=== PATIENT | female | born 1985 | race Caucasian/White ===

== ENCOUNTER 2018-01-08 01:41 | Inpatient (IN) | payer BC, SELFPAY ==
[2018-01-08 02:59] LABS: Hemoglobin 13.2 g/dL (12.0-16.0); Mean Corpuscular HGB CONC 35.8 g/dL (32.0-36.0); Mean Corpuscular Hemoglobin 30.1 pg (27.0-31.0); Mean Corpuscular Volume 83.9 fl (81.0-99.0); Mean Platelet Volume 8.4 fL (7.4-10.4); Platelet Count 168 thou/uL (130-400); RBC Distribution Width 13.7 % (11.5-14.5); Red Blood Cell (RBC) Count 4.39 mill/uL (4.20-5.40); White Blood Cell (WBC) Count 13.2 thou/uL (4.8-10.8)
[2018-01-08 03:04] VITALS: BMI 33.9
[2018-01-08 03:30] LABS: Band 15 % (5-11); Lymphocytes 6 % (21-51); MDiff Complete? YES; Monocytes 2 % (0-10); Neutrophil 76 % (42-75); PLT Morphology Comment Appears Adequate; Reactive Lymphocytes 1 % (0-10)
[2018-01-08] MEDS ORDERED: Promethazine HCl 25 MG/ML VIAL IM PRN (03:36)
[2018-01-08] MEDS ORDERED: Ondansetron HCl/PF 4 MG/2 ML Vial IVP PRN ×2 (03:36→13:49)
[2018-01-08] MEDS ORDERED: Lidocaine 1% (PF) 30 ML VIAL SC PRN (03:36)
[2018-01-08] MEDS ORDERED: Carboprost 250 MCG/ML AMP IM PRN (03:36)
[2018-01-08] MEDS ORDERED: Ibuprofen 800 MG TAB PO PRN (03:36)
[2018-01-08] MEDS ORDERED: Diphenoxylate HCl/Atropine Tablet PO PRN (03:36)
[2018-01-08] MEDS ORDERED: LR / Pitocin 40 units/1000 ml 1,000 ML IV PRN (03:36)
[2018-01-08] MEDS ORDERED: LR / Pitocin 40 units/1000 ml 1,000 ML ONE ×2 (03:39→03:44)
[2018-01-08] MEDS ORDERED: Lactated Ringer's 1,000 ML IV SCH (03:45)
[2018-01-08] MEDS ORDERED: LR 500 ML/Oxytocin 10 units 500 ML IV SCH (03:45)
[2018-01-08] MEDS ORDERED: Clindamycin/D5W 900 mg/50 ml Premix Bag ONE (03:46)
[2018-01-08 03:51] LABS: Hemoglobin 12.6 g/dL (12.0-16.0); White Blood Cell (WBC) Count 13.8 thou/uL (4.8-10.8)
[2018-01-08] MEDS: Acetaminophen 1,000 MG in Premix Bag 1 BAG IVPB SCH ×2 (03:53→11:32)
[2018-01-08] MEDS: Clindamycin/D5W 900 MG in Premix Bag 1 BAG IVPB SCH ×3 (03:54→21:48)
[2018-01-08] MEDS: Lactated Ringer's 1,000 ML IV SCH ×2 (03:55→13:16)
[2018-01-08 03:57] LABS: Mean Corpuscular HGB CONC 34.8 g/dL (32.0-36.0); Mean Corpuscular Hemoglobin 29.2 pg (27.0-31.0); Mean Corpuscular Volume 84.1 fl (81.0-99.0); Mean Platelet Volume 8.7 fL (7.4-10.4); Platelet Count 153 thou/uL (130-400); RBC Distribution Width 13.8 % (11.5-14.5); Red Blood Cell (RBC) Count 4.32 mill/uL (4.20-5.40)
[2018-01-08 04:11] LABS: ALT (SGPT) 15 U/L (8-55); AST (SGOT) 21 U/L (5-34); Albumin 3.4 g/dL (3.5-5.0); Alkaline Phosphatase 129 U/L (40-150); Anion Gap 15 mmol/L (10-20); BUN (Urea Nitrogen) 15 mg/dL (7.0-18.7); Bilirubin, Total 0.6 mg/dL (0.2-1.2); CRP (Inflammatory) 0.69 mg/dL (= or < 0.5); Calc. Creatinine Clearance 191 mL/min (70-130); Carbon Dioxide 17 mmol/L (22-29); Chloride 107 mmol/L (98-107); Estimated GFR-MDRD Greater than 90; Globulin 3.1 g/dL (2.4-3.5); Glucose 87 mg/dL (70-105); Potassium 3.5 mmol/L (3.5-5.1); Protein, Total 6.5 g/dL (6.0-8.3); Sodium 135 mmol/L (136-145)
[2018-01-08 04:26] LABS: HBSAg Index 0.23 S/CO (0-0.99); HIV (1/2) Antibody/Antigen Non-Reactive (NonReactive); HIV 1/2 INDEX 0.13 S/CO (<1.00); Hep B Surf Ag Non-Reactive S/CO (NonReactive)
[2018-01-08] MEDS: Ampicillin 2 GM in Sodium Chloride 0.9% 100 ML IVPB SCH ×4 (04:36→19:33)
--- NOTE | 2018-01-08 04:40 | HP ---
DATE OF ADMISSION: 01/08/2018 ADMITTING DIAGNOSES: Chorioamnionitis with maternal sepsis at 40 and 6/7 weeks gestation. HISTORY OF PRESENT ILLNESS: Ms. Valencia is a 32-year-old 4, para 2, AB 1 with an EVENS of 04/2018 placing her at 40 weeks and 6 days who sees Gris Freeman, a clay pigeon loader for her antepartum car e. The patient reports onset of subjective fever and chills at 2300 on 01/07/2018. She presented to the emergency room at [place] and was then brought to the Labor and Delivery Unit. OB AND COLD PRESS LOADER HISTORY: x2, last one was in [address] Tristan Lizarraga after a prolonged labor exper ience at a birthing center with clay pigeon loader at 43 weeks. The patient delivered a 9-1/2 pound with a first degree midline laceration and was noted to have mild chorioamnionitis and meconium at th at delivery. Other delivery was uncomplicated. The patient has 1 SAB. OB LABS: Not available. PAST MEDICAL HISTORY: None. PAST SURGICAL HISTORY: Appendectomy. ALLERGIES: SULFA and ADHESIVE TAPE. MEDICATIONS: vitamins. SOCIAL HISTORY: Denies tobacco, alcohol, or drug abuse. FAMILY HISTORY/REVIEW OF SYSTEMS: Noncontributory. PHYSICAL EXAMINATION: GENERAL: White female in no acute distress, complaining of mild mid abdominal tenderness. VITAL SIGNS: Temperature 102.8, pulse 105, respirations 20, blood pressure 110/72. HEENT: Within normal limits. HEART: Tachycardia. LUNGS: Clear to auscultation bilaterally. ABDOMEN: Soft. She has mild discomfort to the uterus on palpation. She has indentable contractions q. 3-4 minutes. FHTs are 200-210 on presentation. PELVIC: Vulva without lesions. Vagina without discharge. Cervix 150, -2, cephalic, bag of water in tact. AROM performed with scant clear fluid. IUPC placed. EXTREMITIES: Without clubbing, cyanosis or edema. LABORATORY STUDIES: The patient's white count is approximately 13.5 with a slight left shift. Other labs pending. IMPRESSION: The patient likely meets maternal sepsis criteria with lactic acid and other labs pendin g. Likely etiology is chorioamnionitis. The patient is known to be group B Strep positive per calixto kyle idwife. PLAN: Current heart rate tracing is category 2 with tachycardia and recurrence, but nons equential or repetitive late decelerations noted that do have intra deceleration variability with a f etal pulse in 200s to 110s. We will administer ampicillin, gentamicin, and clindamycin and proceed w ith intrauterine resuscitation of the fetus with Ofirmev, IV fluids, and antibiotics. We will try to get the pulse down below 180s and reassess heart rate tracing at that time. If fetus be comes more tolerant of contractions with improvement in the heart rate tracing would administer Pitocin and attempt an induction of labor, otherwise will proceed with primary section.
[2018-01-08 04:41] LABS: Syphilis Antibody Nonreactive (Nonreactive); Syphilis Antibody Index 0.05 S/CO (<1.00 Non-Reactive)
[2018-01-08 05:37] LABS: Bilirubin Negative (Negative); Blood, Urine Negative (Negative); Clarity CLEAR (Clear); Glucose, Urine (Dipstick) Negative (Negative); Leukocyte Negative (Negative); Nitrite Negative (Negative); Protein, Urine (Dipstick) Negative (Neg-Trace); Specific Gravity, Urine 1.018 (1.002-1.036); Urobilinogen 0.2 mg/dL (0.2-1.0)
[2018-01-08] MEDS: Gentamicin 80 MG/100 ML BAG IVPB SCH ×3 (05:37→22:45)
--- NOTE | 2018-01-08 07:25 | PRG ---
DATE OF SERVICE: 01/08/2018 TIME OF SERVICE: 0705 The patient is resting comfortably. She is having mild to moderate contractions q. 5-6 minutes. Maternal temperature is down to 100.2. Maternal pulse 100, respirations 18, blood pressure is 105/70 . heart rate tracing is category 2, heart rate has declined to 150s to 160s. There is i mproved short and long-term variability over presentation and heart rate decelerations are only occasionally noted. These are early in nature to variable. The cervix has not been rechecked. Aspiration on IUPC reveals moderate to thick meconium. Further history taken from the patient reveals that the patient has had what she calls "loose stools" for the past week without fever. She denies that these are bloody. The patient drinks unpasteurize d milk from a local source and consumes yard eggs from her home. IMPRESSION: Chorioamnionitis, atypical. Laboratory evaluation does not reveal any other source. Gómez spect listeriosis should be high on differential diagnosis for microbiological source of chorioamnion itis. PLAN: I have discussed with neonatology and the patient my suspicions. An antibiotic choice is appr opriate if listeriosis is the etiology. Will check the patient out to the OB Hospitalist at 0800 and anticipate sometime around or after then initiating Pitocin. If infant tolerates contractions at a greater intensity and frequency we will proceed with induction of labor and vaginal delivery. If fet us intolerant will proceed with a delivery. We will culture placenta maternal side po st delivery.
[2018-01-08] MEDS ORDERED: Bupivacaine 0.5% 20 ML, Fentanyl 400 MCG in Sodium Chloride 0.9% 72 ML EPIDURAL SCH (13:00)
[2018-01-08] MEDS ORDERED: DISCONTINUE ALL PREVIOUS NARCOTICS FS SCH (13:00)
[2018-01-08] MEDS: LR / Pitocin 40 units/1000 ml 1,000 ML IV SCH ×2 (13:35→19:33)
[2018-01-08 13:40] LABS: Actual Bicarbonate (HCO3a) 17.4 mEq/L (22-26)
[2018-01-08 13:41] LABS: Analyzer IN Cardio OR; Base Excess (BEa) -7.1 mEq/L (0 (+/-) 2.5)
[2018-01-08] MEDS ORDERED: Methylergonovine 0.2 MG/ML VIAL IM PRN (13:49)
[2018-01-08] MEDS ORDERED: diphenhydrAMINE 25 MG CAP PO PRN (13:49)
[2018-01-08] MEDS ORDERED: Preparation H Ointment 28 GM TUBE PR PRN (13:49)
[2018-01-08] MEDS ORDERED: Milk Of Magnesia 30 ML UDCUP PO PRN (13:49)
[2018-01-08] MEDS ORDERED: Benzocaine/Menthol 20-0.5% 60 ML CAN TOP PRN (13:49)
[2018-01-08] MEDS ORDERED: Bisacodyl 10 MG SUPP PR PRN (13:49)
[2018-01-08] MEDS ORDERED: Adacel (T-DAP) 0.5 ML VIAL IM ONE (13:49)
[2018-01-08] MEDS ORDERED: Misoprostol 200 MCG TAB VAG PRN (13:49)
[2018-01-08] MEDS ORDERED: Varicella virus, LIVE 0.5 ML VIAL SC ONE (13:49)
[2018-01-08] MEDS ORDERED: Lanolin Ointment 7 GM TUBE TOP PRN (13:49)
[2018-01-08] MEDS ORDERED: HYDROcodone/Acetaminophen 5/325 mg Tablet PO PRN ×2 (13:49)
[2018-01-08] MEDS ORDERED: Measles/Mumps/Rubella 10 MCG/0.5 ML VIAL SC ONE (13:49)
--- NOTE | 2018-01-08 13:55 | PDOC.OPDEL ---
OB Operative/Delivery Note Delivery Dr/Surgeon: Sameera Greene MD Pre-Delivery Diagnosis: medically indicated induction Procedure/Post Delivery Dx: spontaneous vaginal delivery Weeks gestation: 40 Anesthesia: none - Findings A Sex: male ([place]) Weight: 8 lb 12 oz - 1 min: 8 - 5 min: 9 - Additional Findings/Plan Placenta delivered: spontaneous Repaired Obstetrical Laceration: 1st degree (and periurethral) Estimated blood loss: 300 Compilations/Other Findings: Vigorous male with nuchal cord x 3. NICU present for delivery. Placental cultures, cord blood gas collected. Post delivery plan: routine recovery
[2018-01-08] MEDS: Ferrous Sulfate 325 MG TAB PO SCH (18:02)
[2018-01-08] MEDS: Ibuprofen 800 MG TAB PO SCH ×2 (18:04→23:01)
[2018-01-09] MEDS: Ampicillin 2 GM in Sodium Chloride 0.9% 100 ML IVPB SCH ×5 (01:51→20:51)
[2018-01-09] MEDS: Docusate Calcium (SURFAK) 240 MG CAP PO SCH ×3 (02:05→22:20)
[2018-01-09] MEDS: Clindamycin/D5W 900 MG in Premix Bag 1 BAG IVPB SCH ×3 (05:15→22:21)
[2018-01-09 06:21] LABS: Band 26 % (5-11); Hemoglobin 11.5 g/dL (12.0-16.0); Lymphocytes 8 % (21-51); MDiff Complete? YES; Mean Corpuscular HGB CONC 34.3 g/dL (32.0-36.0); Mean Corpuscular Hemoglobin 29.6 pg (27.0-31.0); Mean Corpuscular Volume 86.3 fl (81.0-99.0); Mean Platelet Volume 8.8 fL (7.4-10.4); Monocytes 6 % (0-10); Neutrophil 60 % (42-75); PLT Morphology Comment Appears Adequate; Platelet Count 162 thou/uL (130-400); RBC Distribution Width 14.3 % (11.5-14.5); Red Blood Cell (RBC) Count 3.88 mill/uL (4.20-5.40)
[2018-01-09] MEDS: Gentamicin 80 MG/100 ML BAG IVPB SCH ×3 (06:28→23:31)
[2018-01-09] MEDS: Ibuprofen 800 MG TAB PO SCH ×3 (06:28→22:21)
--- NOTE | 2018-01-09 07:41 | PDOC.PP ---
Post Progress Note Post Day #: 1 Subjective: Doing well, no complaints this am. Denies subjective fever, chills. PO intake tolerated: yes Ambulation: yes Vital Signs (12 hours) Temp Pulse Resp BP Pulse Ox 01/09/18 05:12 98.1 F 83 16 97/55 L 01/09/18 01:45 98.0 F 80 16 113/59 L 01/08/18 19:40 98.4 F 83 16 110/56 L 98 - Physical Examination General: NAD Respiratory: non-labored breathing Abdominal: lochia (normal), no distention, appropriately TTP Fundus firm & at: U-4 Skin: CS incision dry & intact, no rash Neurological: no gross focal deficits Psychiatric: A&Ox3, normal affect Result Diagrams: 01/09/18 05:19 01/08/18 03:41 Additional Labs: Post Labs Blood Type A POSITIVE 01/08/18 02:21 Hep Bs Antigen Non-Reactive S/CO (NonReactive) 01/08/18 03:40 (1) Unspecified maternal pyrexia, antepartum Code(s): O75.2 - PYREXIA DURING LABOR, NOT ELSEWHERE CLASSIFIED Status: Acute (2) Vaginal delivery Code(s): O80 - ENCOUNTER FOR FULL-TERM UNCOMPLICATED DELIVERY Status: Acute - Assessment/Plan Feeling better today. Will d/c antibiotics when afebrile at least 24 hours. Cultures pending.
[2018-01-09] MEDS ORDERED: Prenatal Vitamin 1 TAB PO SCH (09:00)
[2018-01-09] MEDS: Ferrous Sulfate 325 MG TAB PO SCH ×2 (09:34→22:20)
--- NOTE | 2018-01-09 16:45 | PRG ---
DATE OF SERVICE: 01/09/2018 SUBJECTIVE: I was asked to speak with Ms. Valencia regarding her concerns this afternoon regarding he r antibiotics. She is status post a vaginal delivery exactly 24 hours ago, at which time, she had a temperature to almost 103 degrees. She has been placed on triple antibiotics in the form of ampicill in, gentamicin, and clindamycin. She has done well and has remained afebrile since that time. [facility] er her white count this morning was 20,000 and she had a left shift. Her initial blood culture, urin e culture, and plasma cultures are negative. She did have questions regarding continuing her antibiotics. I told in light of her elevated white c ount this morning that I would be most comfortable and repeating her white count early tomorrow libby campos and should that be decreasing stopping her antibiotics at that time. She was in agreement with is plan.
[2018-01-10] MEDS: Ampicillin 2 GM in Sodium Chloride 0.9% 100 ML IVPB SCH (02:08)
[2018-01-10] MEDS: Clindamycin/D5W 900 MG in Premix Bag 1 BAG IVPB SCH (05:00)
[2018-01-10 05:53] LABS: #Eosinphils 0.1 thou/uL (0.0-0.7); #Lymphocytes 1.8 thou/uL (1.20-3.40); #Monocytes 0.4 thou/uL (0.11-0.59); #Neutrophils 7.6 thou/uL (1.40-6.50); %Basophils 0.3 % (0.0-1.0); %Eosinophils 1.4 % (0.0-10.0); %Lymphocytes 18.3 % (21.0-51.0); %Monocytes 3.9 % (0.0-10.0); %Neutrophils 76.1 % (42.0-75.0); Hemoglobin 11.1 g/dL (12.0-16.0); Mean Corpuscular HGB CONC 32.7 g/dL (32.0-36.0); Mean Corpuscular Hemoglobin 28.2 pg (27.0-31.0); Mean Corpuscular Volume 86.2 fl (81.0-99.0); Mean Platelet Volume 8.9 fL (7.4-10.4); Platelet Count 163 thou/uL (130-400); RBC Distribution Width 14.3 % (11.5-14.5); Red Blood Cell (RBC) Count 3.94 mill/uL (4.20-5.40)
--- NOTE | 2018-01-10 06:05 | PDOC.PP ---
Post Progress Note Post Day #: PPD#2 Subjective: Resting comfortably, no complaints. PO intake tolerated: yes Ambulation: yes Vital Signs (12 hours) Temp Pulse Resp BP 01/10/18 05:00 98.8 F 84 18 01/09/18 23:31 98.8 F 82 18 01/09/18 19:15 98.8 F 86 18 120/70 - Physical Examination General: NAD Abdominal: no distention Psychiatric: A&Ox3, normal affect Result Diagrams: 01/10/18 05:09 01/08/18 03:41 Additional Labs: Post Labs Blood Type A POSITIVE 01/08/18 02:21 Hep Bs Antigen Non-Reactive S/CO (NonReactive) 01/08/18 03:40 - Assessment/Plan DC antibiotics as WBC has improved and cultures are negative. Baby continues on ABX Possible DC with baby later today
[2018-01-10] MEDS: Gentamicin 80 MG/100 ML BAG IVPB SCH (06:12)
[2018-01-10] MEDS: Ibuprofen 800 MG TAB PO SCH (06:13)
[2018-01-10 08:39] VITALS: BP 111/64; TEMP 97.9
[2018-01-10] MEDS: Ferrous Sulfate 325 MG TAB PO SCH (08:55)
[2018-01-10] MEDS: Docusate Calcium (SURFAK) 240 MG CAP PO SCH (08:56)
--- NOTE | 2018-01-10 16:36 | PDOC.PP ---
Post Progress Note Post Day #: 2 Subjective: No complaints. Minimal lochia, Denies fevers, chills or abdominal tenderness. PO intake tolerated: yes Flatus: yes Ambulation: yes Vital Signs (12 hours) Temp Pulse Resp BP 01/10/18 12:00 97.9 F 72 18 01/10/18 08:00 97.9 F 72 18 111/64 01/10/18 05:00 98.8 F 84 18 - Physical Examination General: NAD Cardiovascular: RRR Respiratory: non-labored breathing Abdominal: no distention, appropriately TTP Fundus firm & at: below umbilicus Extremities: negative homans (B) Neurological: no gross focal deficits Psychiatric: A&Ox3, normal affect Result Diagrams: 01/10/18 05:09 01/08/18 03:41 Additional Labs: Post Labs Blood Type A POSITIVE 01/08/18 02:21 Hep Bs Antigen Non-Reactive S/CO (NonReactive) 01/08/18 03:40 Rubella IgG Antibody 3.59 index (Immune >0.99) 01/08/18 03:40 (1) Chorioamnionitis, delivered, current hospitalization Code(s): O41.1290 - CHORIOAMNIONITIS, UNSP TRIMESTER, NOT APPLICABLE OR UNSP Status: Resolved (2) Vaginal delivery Code(s): O80 - ENCOUNTER FOR FULL-TERM UNCOMPLICATED DELIVERY Status: Acute - Assessment/Plan Pt request discharge today with infant. Pt remains afebrile after d/c ABX this AM. Reviewed with pt I prefer to monitor for 24 hours after d/c ABX, however, she strongly desires discharge. All cultures negative. Allow for d/c home. Instructed to check temp at home. ED warnings reviewed. F/U with beading installer 1-2 weeks.
== END 2018-01-10 17:15 | disposition home or self-care (01) | DRG 775 ==
LOC: ERS 01:41 → L&D/OP 02:36 → L&D 06:13 → 3SW 17:40
PROVIDERS: ADMIT Obstetrics & Gynecology; ATTEND Obstetrics & Gynecology
PROC: 10E0XZZ Delivery of Products of Conception, External Approach (ICD-10-PCS; principal; 2018-01-08)
PROC: 10907ZC Drainage of Amniotic Fluid, Therapeutic from Products of Conception, Via Natural or Artificial Opening (ICD-10-PCS; 2018-01-08)
PROC: 10H07YZ Insertion of Other Device into Products of Conception, Via Natural or Artificial Opening (ICD-10-PCS; 2018-01-08)
PROC: 0HQ9XZZ Repair Perineum Skin, External Approach (ICD-10-PCS; 2018-01-08)
PROC: 3E033VJ Introduction of Other Hormone into Peripheral Vein, Percutaneous Approach (ICD-10-PCS; 2018-01-08)
DX: O41.1230 Chorioamnionitis, third trimester, not applicable or unspecified (principal); O69.81X0 Labor and delivery complicated by cord around neck, without compression, not applicable or unspecified; O76 Abnormality in fetal heart rate and rhythm complicating labor and delivery; O70.0 First degree perineal laceration during delivery; Z37.0 Single live birth; Z3A.40 40 weeks gestation of pregnancy; O99.824 Streptococcus B carrier state complicating childbirth
CPT/HCPCS: 36415; 51701; 80053; 81001; 81003; 82805; 83605; 83630; 85025; 86140; 86762; 86780; 86850; 86870; 86900; 86901; 86905; 86922; 87040; 87045; 87046; 87070; 87076; 87086; 87205; 87324; 87328; 87329; 87340; 87389; 87449; 87899; 88307; 90715; 99284; 99285; J0131; J0290; J1580; J2001; J3010; J3490; J7050; J7120

== ENCOUNTER 2020-11-28 13:00 | Day surgery (SDC) | payer OTHER, SELFPAY ==
[2020-11-28] MEDS ORDERED: hydrALAZINE 20 MG/ML VIAL SLOW IVP PRN (13:12)
[2020-11-28 13:47] VITALS: BMI 31.7
[2020-11-29] MEDS ORDERED: FLU VACC QS2020-21(6MOS UP)/PF 60 MCG/0.5 ML SYRINGE IM ONE (09:00)
== END 2020-11-28 14:45 | disposition home health service (06) ==
LOC: L&D/OP 13:00
PROVIDERS: ATTEND Obstetrics & Gynecology
DX: O48.0 Post-term pregnancy (principal); O09.523 Supervision of elderly multigravida, third trimester; Z3A.41 41 weeks gestation of pregnancy; Z79.899 Other long term (current) drug therapy; Z88.2 Allergy status to sulfonamides
CPT/HCPCS: 76819; 99282

== ENCOUNTER 2020-11-29 23:16 | Inpatient (IN) | payer OTHER, SELFPAY ==
[2020-11-29] MEDS: Lactated Ringer's 1,000 ML IV SCH (23:45)
[2020-11-29 23:52] VITALS: BMI 31.6
[2020-11-29] MEDS ORDERED: Lidocaine 1% (PF) 30 ML VIAL SC PRN ×2 (23:57→23:58)
[2020-11-29] MEDS ORDERED: hydrALAZINE 20 MG/ML VIAL SLOW IVP PRN ×2 (23:57→23:58)
[2020-11-29] MEDS ORDERED: NS / Oxytocin 40 units/1000ml 1,000 ML IV PRN ×2 (23:57→23:58)
[2020-11-29] MEDS ORDERED: Promethazine HCl 25 MG/ML VIAL IM PRN ×2 (23:57→23:58)
[2020-11-29] MEDS ORDERED: Ondansetron PF 4 MG/2 ML Vial IVP PRN ×2 (23:57→23:58)
[2020-11-29] MEDS ORDERED: Butorphanol Tartrate 1 MG/ML VIAL SLOW IVP PRN (23:58)
[2020-11-29] MEDS ORDERED: Ibuprofen 800 MG TAB PO PRN (23:58)
[2020-11-29] MEDS ORDERED: HYDROcodone/Acetaminophen 5/325 mg Tablet PO PRN ×2 (23:58)
[2020-11-29] MEDS ORDERED: Rocuronium Bromide 10 MG/ML (10ML VIAL) ONE (23:59)
[2020-11-29] MEDS ORDERED: PROPOFOL 20 ML ONE (23:59)
[2020-11-29] MEDS ORDERED: Ondansetron PF 4 MG/2 ML Vial ONE (23:59)
[2020-11-29] MEDS ORDERED: Succinylcholine 200 MG/10 ml SYRINGE FS ONE (23:59)
[2020-11-29] MEDS ORDERED: Oxytocin 10 UNITS/ML VIAL ONE (23:59)
[2020-11-30] MEDS ORDERED: Lidocaine 1% PF 5 ML VIAL ONE
[2020-11-30 00:15] LABS: Hemoglobin 14.2 g/dL (12.0-16.0); Mean Corpuscular HGB CONC 34.1 g/dL (32.0-36.0); Mean Corpuscular Hemoglobin 29.7 pg (27.0-31.0); Mean Platelet Volume 8.9 fL (7.4-10.4); Platelet Count 162 thou/uL (130-400); RBC Distribution Width 12.7 % (11.5-14.5); Red Blood Cell (RBC) Count 4.78 mill/uL (4.20-5.40)
[2020-11-30] MEDS ORDERED: Acetaminophen 500 MG TAB PO SCH (00:15)
--- NOTE | 2020-11-30 00:15 | PDOC.BPN ---
- Brief Progress Note Please see H&P. AROM: Arom done to assess fluid and augment labor. IV amp now in use (Gent pending). AROM with mod mec noted. Discussed this with the patient. NICU at delivery for mec and IAI. No internals placed as CX was 7/80/-1 after AROM. Strip with FHTs 180s with some lates, but minimum to moderate variability. watching strip close...if not better after attempt at intrauterine resus...will need CS.
[2020-11-30] MEDS ORDERED: Gentamicin Sulfate 120 MG in Premix Bag 1 BAG IVPB SCH (00:30)
[2020-11-30] MEDS ORDERED: Azithromycin 500 MG VIAL ONE (00:30)
[2020-11-30] MEDS ORDERED: Acetaminophen/Codeine 30-300mg Tablet PO PRN ×2 (00:32)
[2020-11-30] MEDS ORDERED: hydrALAZINE 20 MG/ML VIAL SLOW IVP PRN (00:32)
[2020-11-30] MEDS ORDERED: Lanolin Ointment 7 GM TUBE TOP PRN (00:32)
--- NOTE | 2020-11-30 00:36 | HP ---
LOCATION: Labor and Delivery, in bed 10. REASON FOR EVALUATION/CHIEF COMPLAINT: The patient was transferred by Gris, local caster investment casting, for fever and tachycardia. HISTORY OF PRESENT ILLNESS: This is a 35-year-old, G6, P4, AB1, who is at 42 weeks, who was laboring with a caster investment casting diagnosed fever at their location of 100.9. This was at 2236 hours. They also noted tachycardia over 180 and so they transferred her to Labor and Delivery. She states positive contractions, no vaginal bleeding and she has not ruptured her membranes. She has good movement. REVIEW OF SYSTEMS: In general, complete review of systems was performed and is otherwise negative unless specified in the HPI. GENERAL: No sick contacts. No fever. No chills except recently during labor. CARDIOVASCULAR: No chest pain. PULMONARY: No shortness of breath. EXTREMITIES: No unusual leg swelling or calf pain. PAST MEDICAL HISTORY: History of hypothyroidism, on replacement. ALLERGIES: NONE. PAST SURGICAL HISTORY: Includes appendectomy in the past. OB HISTORY: Significant for vaginal deliveries in the past. The last one was also post-term and she also had chorioamnionitis with that delivery. MEDICATIONS: Include, 1. vitamins. 2. Thyroid replacement ([employer]). PHYSICAL EXAMINATION: VITAL SIGNS: Temperature here is 98.4, pulse is in the high 90s, respirations were 18 and nonlabored. Blood pressure was pending when I was in the room as she just arrived. GENERAL: She is in no acute distress. ABDOMEN: Uterus is firm and size compatible with dates. It is not exquisitely tender. PELVIC: Reveals a cervix of 5 cm dilation, 60% effacement, -2 station, cephalic and bag of water is intact. There are no vulvovaginal lesions. monitor, initially when she arrived, heart tones were 190s to 200s with decreased variability and suspected late decelerations. They are now in the 170s to 180s with mild to moderate variability. Tocodynamometer shows contractions every 2 to 3 minutes. It is category 2. ASSESSMENT: This is a multigravida at 42 weeks (post-term) with suspected intraamniotic infection, not yet treated. When she first arrived due to the extreme tachycardia, I did suspect that we were going for . This was before cervical exam. Because I found her to be 5 cm, and because she is a multigravida, I discussed the option of IV antibiotics now with IV hydration and p.o. Tylenol to try to intrauterine resuscitate the child. If this does not correct the heart rate abnormality, then we will proceed with . PLAN: 1. IV ampicillin and gentamicin ordered. 2. IV fluids. 3. Tylenol 1 g p.o. 4. Anesthesia has already seen the patient. In case the heart tones do not resolve, we will proceed with . 5. COVID screening per protocol. 6. Gris, the patient's caster investment casting, is present in the room. All questions were answered by me. I will perform an AROM to try to augment her labor after this dictation. Job ID: [id number]
--- NOTE | 2020-11-30 00:37 | PRG ---
DATE OF SERVICE: 11/30/2020 This is a preop note. TIME: 0024. SUBJECTIVE: In brief, I have evaluated the strip after AROM, and the strip is still category III. There is minimal to absent variability with late decels despite my AROM and attempt to try to speed things along. IV antibiotics are being given. Because this is a 42-week placenta, there was meconium present, and there was already intraamniotic infection. Because there was intraamniotic infection, my recommendation is to proceed with an urgent now. We will expedite delivery by going back now for the . NICU being called. Anesthesia is being called back. The room is being opened. Job ID: [id number]
[2020-11-30] MEDS ORDERED: Fentanyl 100 MCG/2 ML VIAL ONE ×3 (00:44→01:24)
[2020-11-30] MEDS ORDERED: Midazolam HCl 2 mg/2 ml Vial ONE (00:45)
[2020-11-30] MEDS ORDERED: Ampicillin 2 GM in Sodium Chloride 0.9% 100 ML IVPB SCH (00:45)
[2020-11-30 00:55] LABS: Syphilis Antibody Nonreactive (Nonreactive); Syphilis Antibody Index 0.04 S/CO (<1.00 Non-Reactive)
[2020-11-30] MEDS ORDERED: Oxytocin 10 UNITS/ML VIAL ONE (01:01)
[2020-11-30] MEDS ORDERED: SUGAMMADEX SODIUM 200 MG/2 ML VIAL ONE (01:11)
[2020-11-30] MEDS ORDERED: Dexamethasone 4 mg/ml Vial ONE (01:11)
[2020-11-30] MEDS ORDERED: Ketorolac Tromethamine 30 MG/ML VIAL ONE (01:11)
[2020-11-30] MEDS ORDERED: Ondansetron HCl/PF 4 MG/2 ML Vial IVP PRN (01:12)
[2020-11-30] MEDS ORDERED: Promethazine HCl 25 MG/ML VIAL SLOW IVP PRN (01:12)
[2020-11-30] MEDS ORDERED: Promethazine HCl 25 MG/ML VIAL IM PRN ×2 (01:12→01:13)
[2020-11-30] MEDS ORDERED: Ondansetron PF 4 MG/2 ML Vial IVP PRN (01:13)
[2020-11-30] MEDS ORDERED: diphenhydrAMINE 25 MG CAP PO PRN (01:13)
[2020-11-30] MEDS ORDERED: fentaNYL Citrate/PF 2,000 MCG in Sodium Chloride 0.9% 60 ML IV PRN (01:13)
[2020-11-30] MEDS ORDERED: Naloxone HCl 0.4 mg/ml Vial IV PRN (01:13)
[2020-11-30] MEDS ORDERED: diphenhydrAMINE 50 MG/ML VIAL IM PRN (01:13)
[2020-11-30] MEDS ORDERED: Zolpidem Tartrate 5 MG TAB PO PRN (01:13)
[2020-11-30] MEDS ORDERED: diphenhydrAMINE 50 MG/ML VIAL IVP PRN (01:13)
[2020-11-30] MEDS ORDERED: Communication Order-Pharmacy FS SCH (01:15)
[2020-11-30 01:18] LABS: Actual Bicarbonate (HCO3a) 20.7 mEq/L (22-28); Base Excess (BEa) -5.4 mEq/L (-2.0 to +3.0)
[2020-11-30 01:20] LABS: Actual Bicarbonate (HCO3v) 22 mEq/L (22-28); Base Excess -4.9 mEq/L (-2.0 to +3.0); pH (Cord, venous) 7.27 (7.32-7.43)
[2020-11-30 01:30] LABS: HBSAg Index 0.19 S/CO (0-0.99); HIV (1/2) Antibody/Antigen Non-Reactive (NonReactive); Hep B Surf Ag Non-Reactive S/CO (NonReactive)
--- NOTE | 2020-11-30 01:33 | PDOC.BPN ---
- Brief Progress Note Op Note See full dictated report Primary LTCS without complication. Two layer hysterotomy closure Baby female with apgars 7 and 9 (verbal per NICU nurses) I will continue A/G/C postop as she was not fully treated intrapartum. Ancef and Zmax given intraop per protocol
--- NOTE | 2020-11-30 01:49 | OP ---
DATE OF PROCEDURE: 11/30/2020 TIME: 0122 hours. PREOPERATIVE DIAGNOSES: 1. The patient at 42 weeks gestation. 2. Multigravida. 3. Suspected intraamniotic infection. 4. Moderate meconium at rupture of membranes. 5. Non-reassuring heart rate tracing ( tachycardia at 190s with recurrent late decelerations, minimal variability). POST PROCEDURE DIAGNOSES: 1. The patient at 42 weeks gestation. 2. Multigravida. 3. Suspected intraamniotic infection. 4. Moderate meconium at rupture of membranes. 5. Non-reassuring heart rate tracing ( tachycardia at 190s with recurrent late decelerations, minimal variability). 6. Status post primary low transverse . PROCEDURE: Primary low transverse section via Pfannenstiel (two layer hysterotomy closure). CO-SURGEON: Taylor Soares DO ANESTHESIA: General anesthesia (due to the suspected infected state). INTRAVENOUS FLUIDS: 1 L crystalloid. URINE OUTPUT: 300 mL urine by Esqueda. ESTIMATED BLOOD LOSS: 500 mL. Estimated blood loss with QBL pending. FINDINGS: 1. There is a in cephalic presentation. 2. [place] is female. 3. Apgars are 7 and 9 by the nursery nurses. 4. Meconium stained placenta. 5. Hemostasis post uterine repair. COMPLICATIONS: None. COUNTS: Correct. PATHOLOGY: Placenta. LABORATORY DATA SENT: Umbilical arterial cord gas. DISPOSITION: To recovery room in good and stable condition. INDICATION: This patient presented from the director community organization as an intrapartum fever with tachycardia. Please see the preop diagnosis as above. DESCRIPTION OF PROCEDURE: After informed consent was explained to the patient and after stressing with her the need for a primary , she was taken to the operating room in Labor and Delivery. She was placed under general endotracheal anesthesia. A low transverse hysterotomy was made with the scalpel and Bovie cautery was used on cut mode to dissect the subcutaneous tissue down to level of the fascia. Fascia was identified, cleaned off any overlying fat, and entered in a transverse fashion with Wolff scissors. Rectus muscles were off the fascia both superiorly and inferiorly off the midline with Wolff scissors. Rectus muscles were away from the midline and the underlying peritoneum was then entered by blunt dissection. An Jhonathan O ring retractor was then placed into the wound for retraction. A low transverse hysterotomy was made without bladder flap creation. Baby was in a cephalic presentation. The meconium was noted in the fluid. Baby's head was delivered in atraumatic fashion as were the shoulders and body. Cord was clamped, transected, and the baby was handed to the NICU nurses present for delivery. A cord segment was sent for cord gases. Cord blood was collected. The placenta was then gently massaged out of the uterine cavity and it was intact. A dry laparotomy sponge was used to curettage the uterine cavity signifying lack of any retained products of conception. #1 Monocryl was used to close the hysterotomy in a two-layer closure. The first was in a running locking layer and the second was an imbricating layer. Copious irrigation was then performed and after confirming hemostasis, the parietal peritoneum was closed in the midline with 3-0 plain gut. The fascia was closed with 0 PDS suture x2 in a running nonlocking fashion. Subcutaneous tissue was copiously irrigated, closed with 3-0 plain gut and the skin was closed with 4-0 Monocryl in a subcuticular stitch. Dermabond was placed over the wound. No complications were noted. The patient tolerated the procedure well and will go to recovery room. Job ID: [id number] [facility]
[2020-11-30 04:32] LABS: HIV 1/2 INDEX 0.07 S/CO (<1.00)
[2020-11-30 05:30] LABS: SARS-CoV-2 PCR by NAA Not Detected (NotDetected)
[2020-11-30] MEDS: Clindamycin/D5W 900 MG in Premix Bag 1 BAG IVPB SCH ×3 (06:07→21:37)
--- NOTE | 2020-11-30 06:40 | PDOC.PP ---
Post Progress Note Post Day #: 6 hrs Subjective: Doing well. Thankful for a good outcome. PO intake tolerated: yes Flatus: yes Ambulation: yes Vital Signs (12 hours) Temp Pulse Resp BP 11/29/20 23:37 98.4 F 120 H 18 118/62 Weight Weight 208 lb - Physical Examination General: NAD Respiratory: non-labored breathing Abdominal: appropriately TTP Neurological: no gross focal deficits Psychiatric: A&Ox3, normal affect Result Diagrams: 11/30/20 00:05 Additional Labs: Post Labs Hep Bs Antigen Non-Reactive S/CO (NonReactive) 11/30/20 00:05 Blood Type A POSITIVE 11/30/20 00:05 (1) delivery delivered Code(s): O82 - ENCOUNTER FOR DELIVERY WITHOUT INDICATION Status: Acute (2) Chorioamnionitis, delivered, current hospitalization Code(s): O41.1290 - CHORIOAMNIONITIS, UNSP TRIMESTER, NOT APPLICABLE OR UNSP Status: Acute - Assessment/Plan POD 6 hrs on amp/gent/clinda for 24 hrs as not treated fully intrapartum. Doing well. baby was 10 pounds 9 oz. Continue postop care. Follow temps
[2020-11-30] MEDS: Ampicillin 2 GM in Sodium Chloride 0.9% 100 ML IVPB SCH ×3 (08:19→19:16)
[2020-11-30] MEDS ORDERED: Measles/Mumps/Rubella 10 MCG/0.5 ML VIAL SC ONE (09:00)
[2020-11-30] MEDS ORDERED: Adacel (T-DAP) 0.5 ML SYRINGE IM ONE (09:00)
[2020-11-30] MEDS ORDERED: Varicella virus, LIVE 0.5 ML VIAL SC ONE (09:00)
[2020-11-30] MEDS: Ibuprofen 800 MG TAB PO SCH ×3 (10:05→21:38)
[2020-11-30] MEDS: Gentamicin Sulfate 80 MG in Premix Bag 1 BAG IVPB SCH ×2 (10:06→16:41)
[2020-11-30] MEDS: Prenatal Vitamin 1 TAB PO SCH (11:33)
[2020-11-30] MEDS: Lactated Ringer's 1,000 ML IV SCH ×2 (11:33→19:40)
[2020-11-30] MEDS: Docusate Calcium (SURFAK) 240 MG CAP PO SCH ×2 (11:33→21:38)
[2020-11-30] MEDS: HYDROcodone/Acetaminophen 5/325 mg Tablet PO PRN ×2 (12:25→18:18)
[2020-12-01] MEDS: Gentamicin Sulfate 80 MG in Premix Bag 1 BAG IVPB SCH (00:37)
[2020-12-01] MEDS: Lactated Ringer's 1,000 ML IV SCH ×3 (00:49→15:49)
[2020-12-01] MEDS: Ampicillin 2 GM in Sodium Chloride 0.9% 100 ML IVPB SCH (07:44)
[2020-12-01 07:49] LABS: Hemoglobin 11.1 g/dL (12.0-16.0); Mean Corpuscular HGB CONC 33.7 g/dL (32.0-36.0); Mean Corpuscular Hemoglobin 30.2 pg (27.0-31.0); Mean Corpuscular Volume 89.6 fL (78.0-98.0); Mean Platelet Volume 8.9 fL (7.4-10.4); Platelet Count 151 thou/uL (130-400); RBC Distribution Width 13.2 % (11.5-14.5); Red Blood Cell (RBC) Count 3.66 mill/uL (4.20-5.40); White Blood Cell (WBC) Count 11.1 thou/uL (4.8-10.8)
[2020-12-01] MEDS: Clindamycin/D5W 900 MG in Premix Bag 1 BAG IVPB SCH (07:56)
[2020-12-01] MEDS: Ibuprofen 800 MG TAB PO SCH ×3 (07:56→21:27)
--- NOTE | 2020-12-01 08:12 | PRG ---
DATE OF SERVICE: 12/01/2020 SUBJECTIVE: The patient is postop day #2 status post a primary for non-reassuring heart tones and chorioamnionitis, status post antibiotics. The patient reports that she is having decent pain control today and is tolerating p.o. well. Her baby will be observed until late tonight and is not eligible for discharge. OBJECTIVE: VITAL SIGNS: Today, her blood pressure 96/53, temperature 98.3, pulse of 86, and respiratory rate of 16. GENERAL: She appears to be in no acute distress. She is alert and oriented, cooperative, and pleasant to interact with. HEENT: Head is normocephalic and atraumatic. ABDOMEN: Incision is clean, dry, and intact. Fundus is firm. ASSESSMENT AND PLAN: The patient is a 35-year-old female, postop day #2 status post a primary for non-reassuring heart tones and chorioamnionitis, doing well. Anticipate discharge tomorrow when baby becomes eligible. Job ID: [id number]
[2020-12-01] MEDS: Prenatal Vitamin 1 TAB PO SCH (08:27)
[2020-12-01] MEDS: Docusate Calcium (SURFAK) 240 MG CAP PO SCH ×2 (08:28→21:29)
[2020-12-01] MEDS: HYDROcodone/Acetaminophen 5/325 mg Tablet PO PRN ×3 (12:16→22:13)
[2020-12-01] MEDS ORDERED: Simethicone Chewable 80 MG TAB PO PRN (12:27)
[2020-12-02] MEDS: Lactated Ringer's 1,000 ML IV SCH ×2 (04:33→09:57)
[2020-12-02] MEDS: Ibuprofen 800 MG TAB PO SCH (05:04)
[2020-12-02 08:02] VITALS: BP 100/60; TEMP 98.7
[2020-12-02] MEDS: Prenatal Vitamin 1 TAB PO SCH (09:53)
[2020-12-02] MEDS: HYDROcodone/Acetaminophen 5/325 mg Tablet PO PRN (09:55)
[2020-12-02] MEDS: Docusate Calcium (SURFAK) 240 MG CAP PO SCH (09:57)
== END 2020-12-02 11:40 | disposition home or self-care (01) | DRG 786 ==
LOC: L&D/OP 23:16 → L&D-LIB 11-30 00:37 → 3SW 11-30 04:24
PROVIDERS: ADMIT Obstetrics & Gynecology; ATTEND Obstetrics & Gynecology
PROC: 10D00Z1 Extraction of Products of Conception, Low, Open Approach (ICD-10-PCS; principal; 2020-11-30)
PROC: 10907ZC Drainage of Amniotic Fluid, Therapeutic from Products of Conception, Via Natural or Artificial Opening (ICD-10-PCS; 2020-11-30)
DX: O77.0 Labor and delivery complicated by meconium in amniotic fluid (principal); O41.1230 Chorioamnionitis, third trimester, not applicable or unspecified; Z20.822 Contact with and (suspected) exposure to COVID-19; Z3A.41 41 weeks gestation of pregnancy; Z37.0 Single live birth; O99.284 Endocrine, nutritional and metabolic diseases complicating childbirth; E03.9 Hypothyroidism, unspecified; O48.0 Post-term pregnancy; O76 Abnormality in fetal heart rate and rhythm complicating labor and delivery; Z28.21 Immunization not carried out because of patient refusal; Z79.890 Hormone replacement therapy; Z90.49 Acquired absence of other specified parts of digestive tract; Z79.899 Other long term (current) drug therapy
CPT/HCPCS: 36415; 82805; 85027; 86762; 86780; 86850; 86900; 86901; 86922; 87340; 87389; 87635; J0290; J0456; J0690; J1100; J1580; J1885; J2250; J2405; J2704; J3010; J3490; U0003; U0005